=== PATIENT | male | born 1955 | race Caucasian/White ===

== ENCOUNTER 2021-07-30 15:04 | Inpatient (IN) | payer OTHER ==
[~2021-07-30] VITALS: Ht 167.6 cm; Wt 90.7 kg
[~2021-07-30 15:04] MED LIST: ADMELOG100 UNIT/1 SQ; BASAGLAR K100 UNIT/1 SC; CATAPRES0.3 MG PO; HUMALOG100 UNIT/1 SQ; HYDRALAZINE HC100 MG PO; HYDRALAZINE HCL25 MG PO; HYDROCHLOROTHIA25 MG PO; LEVOTHYROXINE75 MCG PO; LIPITOR TAB 2020 MG PO; LOPID TAB 600600 MG PO; LOPRESSOR 25 MG25 MG PO; LOPRESSOR50 MG PO; MAPAP500 MG PO; NORCO 7.5-3251 EACH PO; NORVASC10 MG PO; PHOSLO 667 MG667 MG PO; POTASSIUM CHLOR8 ME1 PO; PRINIVIL20 MG PO; PROTONIX40 MG PO; RENVELA2.4 GM PO; SYNTHROID100 MCG PO; TOUJEO MAX300 UNIT/1 INJ; TUMS300 MG PO; VITAMIN D250000 UNIT PO; VITAMIN D5000 UNIT PO; ZANAFLEX4 MG PO; ZOFRAN4 MG PO
[2021-07-30 15:38] LABS: HEMOGLOBIN 8.6 gm/dl (14.0-17.5); RED BLOOD COUNT 2.57 M/UL (4.20-5.50); WHITE BLOOD COUNT 12.3 K/UL (4.5-11.0)
[2021-07-30] MEDS ORDERED: HYDROCODON-ACE1 EAC2 PO (22:38)
[2021-07-30] MEDS ORDERED: BANOPHEN25 MG PO (22:39)
[2021-07-31 03:07] LABS: HEMOGLOBIN 7.9 gm/dl (14.0-17.5); RED BLOOD COUNT 2.38 M/UL (4.20-5.50); WHITE BLOOD COUNT 10.1 K/UL (4.5-11.0)
[2021-07-31] MEDS ORDERED: LANTUS100 UNIT/1 SQ (12:55)
[2021-08-01 07:05] LABS: HEMOGLOBIN 7.4 gm/dl (14.0-17.5); RED BLOOD COUNT 2.27 M/UL (4.20-5.50); WHITE BLOOD COUNT 10.2 K/UL (4.5-11.0)
[2021-08-02 07:54] LABS: HEMOGLOBIN 7.1 gm/dl (14.0-17.5); RED BLOOD COUNT 2.26 M/UL (4.20-5.50); WHITE BLOOD COUNT 10.5 K/UL (4.5-11.0)
[2021-08-02 19:25] LABS: HEMOGLOBIN 8.1 gm/dl (14.0-17.5); RED BLOOD COUNT 2.44 M/UL (4.20-5.50); WHITE BLOOD COUNT 11.2 K/UL (4.5-11.0)
--- NOTE | 2021-08-02 20:51 | NUR ---
2034- PT SENT WITH EMS TO [facility]. HEPARIN DRIP START DELAYED D/T EXTENDED TIME SPENT IN CT. PT SENT WITH ALL BELONGINGS. PT SENT WITH FULL COPY OF CHART INCLUDING EMAR ADMINISTRATION REPORT AND HEPARIN FLOW SHEETS. REPORT GIVEN TO EMS PRIOR TO TRANSFER AND THEY ENDORSED NO QUESTIONS.
== END 2021-08-02 20:44 | disposition short-term general hospital (02) | DRG 157 ==
LOC: ER1 15:04 → M/S 21:00 → CDU 21:00 → M/S 22:29
PROVIDERS: Emergency Medicine; Internal Medicine; Internal Medicine Nephrology; ADMIT Internal Medicine Infectious Disease
PROC: 5A1D70Z Performance of Urinary Filtration, Intermittent, Less than 6 Hours Per Day (ICD-10-PCS; principal; 2021-08-02)
DX: K04.6 Periapical abscess with sinus (principal); N18.6 End stage renal disease; L03.213 Periorbital cellulitis; G08 Intracranial and intraspinal phlebitis and thrombophlebitis; I12.0 Hypertensive chronic kidney disease with stage 5 chronic kidney disease or end stage renal disease; Z20.822 Contact with and (suspected) exposure to COVID-19; K02.9 Dental caries, unspecified; H49.882 Other paralytic strabismus, left eye; E78.5 Hyperlipidemia, unspecified; H49.3 Total (external) ophthalmoplegia; H54.62 Unqualified visual loss, left eye, normal vision right eye; E11.22 Type 2 diabetes mellitus with diabetic chronic kidney disease; D63.1 Anemia in chronic kidney disease; Z79.4 Long term (current) use of insulin; Z99.2 Dependence on renal dialysis; Z79.82 Long term (current) use of aspirin; Z90.49 Acquired absence of other specified parts of digestive tract
CPT/HCPCS: 36415; 70470; 70487; 80048; 80053; 82550; 82553; 82962; 83605; 83874; 84484; 85025; 85610; 85730; 86140; 87081; 87880; 90937; 93005; 96374; 96375; 96376; 99285; G0378; J1170; J1335; J1644; J2185; J2405; J2550; J3370; J7070; Q9967; U0002

== ENCOUNTER 2022-03-21 15:06 | Emergency (ER) | payer OTHER ==
[~2022-03-21 15:06] MED LIST changes: +ASPIRIN EC81 MG PO; +BANOPHEN25 MG PO; +CRESEMBA PO; +GEMFIBROZIL600 MG PO; -HYDRALAZINE HCL25 MG PO; +HYDROCODON-ACE1 EAC6 PO; +IMDUR PO; +LANTUS100 UNIT/1 SQ; +LEVOTHYROXINE100 MCG PO; +LISINOPRIL20 MG PO; +LISINOPRIL40 MG PO; -RENVELA2.4 GM PO; +RENVELA800 MG PO; -TOUJEO MAX300 UNIT/1 INJ; +TOUJEO MAX300 UNIT/1 SQ; +VITAMIN D21250 MCG PO; +ZOFRAN 4 MG TAB4 MG PO; -ZOFRAN4 MG PO
[2022-03-21 15:33] LABS: RED BLOOD COUNT 3.16 M/UL (4.20-5.50); WHITE BLOOD COUNT 5.5 K/UL (4.5-11.0)
== END 2022-03-21 19:25 | disposition home or self-care (01) ==
LOC: ER1 15:06
PROVIDERS: Emergency Medicine
DX: T82.838A Hemorrhage due to vascular prosthetic devices, implants and grafts, initial encounter (principal); I12.0 Hypertensive chronic kidney disease with stage 5 chronic kidney disease or end stage renal disease; N18.6 End stage renal disease; D64.9 Anemia, unspecified; D69.6 Thrombocytopenia, unspecified; E78.5 Hyperlipidemia, unspecified; Y83.8 Other surgical procedures as the cause of abnormal reaction of the patient, or of later complication, without mention of misadventure at the time of the procedure
CPT/HCPCS: 80053; 82550; 82553; 84484; 85025; 85610; 85730; 99283

== ENCOUNTER 2022-05-09 16:59 | Emergency (ER) | payer MEDICARE, OTHER ==
[2022-05-09 18:08] LABS: HEMOGLOBIN 8.5 gm/dl (14.0-17.5); RED BLOOD COUNT 2.78 M/UL (4.20-5.50); WHITE BLOOD COUNT 5.6 K/UL (4.5-11.0)
[2022-05-09] MEDS ORDERED: CEPHALEXIN500 M1 PO (20:24)
== END 2022-05-09 20:43 | disposition home or self-care (01) ==
LOC: ER1 16:59
DX: I96 Gangrene, not elsewhere classified (principal); E11.22 Type 2 diabetes mellitus with diabetic chronic kidney disease; N18.9 Chronic kidney disease, unspecified
CPT/HCPCS: 73130; 80053; 85025; 85652; 86140; 99284

== ENCOUNTER 2022-05-18 01:01 | Inpatient (IN) | payer OTHER ==
[~2022-05-18] VITALS: Ht 167.6 cm; Wt 83.7 kg
[~2022-05-18 01:01] MED LIST changes: +CEPHALEXIN500 M1 PO; -LISINOPRIL40 MG PO; -LOPRESSOR 25 MG25 MG PO; +LOPRESSOR 50 MG50 MG PO
[2022-05-18 06:07] LABS: RED BLOOD COUNT 2.25 M/UL (4.20-5.50)
--- NOTE | 2022-05-18 07:05 | NUR ---
CRITICAL LAB OF [facility] 6.9 RECIEVED, [facility] IT CAME BACK 7.0, CONTACTED DR. NAILS WHO REPLIED "K" NOTIFIED DAY SHIFT NURSE OF [facility].
[2022-05-18 14:36] LABS: HEMOGLOBIN 7.7 gm/dl (14.0-17.5)
[2022-05-18] MEDS ORDERED: SENNA8.6 MG PO (15:04)
[2022-05-18] MEDS ORDERED: NOVOLOG100 UNIT/2 SQ (15:06)
[2022-05-18] MEDS ORDERED: BASAGLAR K100 UNIT/1 SQ (15:11)
[2022-05-18] MEDS ORDERED: HYDROCHLOROTHIA25 MG PO (15:13)
[2022-05-18] MEDS ORDERED: LOPERAMIDE2 MG PO (15:22)
[2022-05-18] MEDS ORDERED: FENOFIBRATE54 MG PO (15:31)
--- NOTE | 2022-05-18 15:32 | NUR ---
CONTACTED DR ABRAMS WITH UPDATED [facility] OF 7.7 AFTER PATIENT RECEIVED 1 UNIT OF PACKED RBC'S.
[2022-05-18] MEDS ORDERED: TRIAMCINOLONE A80 GM TOP (15:53)
[2022-05-19 03:05] LABS: HEMOGLOBIN 8.2 gm/dl (14.0-17.5); WHITE BLOOD COUNT 7.3 K/UL (4.5-11.0)
[2022-05-19 03:14] LABS: RED BLOOD COUNT 2.66 M/UL (4.20-5.50)
[2022-05-20 02:49] LABS: RED BLOOD COUNT 2.54 M/UL (4.20-5.50); WHITE BLOOD COUNT 6.5 K/UL (4.5-11.0)
[2022-05-20 23:50] LABS: BORDETELLA PARAPERTUSSIS Not Detected (Not Detectd); BORDETELLA PERTUSSIS Not Detected (Not Detectd); CHLAMYDIA PNEUMONIAE Not Detected (Not Detectd); CORONAVIRUS HKU1 Not Detected (Not Detectd); CORONAVIRUS NL63 Not Detected (Not Detectd); CORONAVIRUS OC43 Not Detected (Not Detectd); CORONOAVIRUS 229E Not Detected (Not Detectd); HUMAN METAPNEUMOVIRUS Not Detected (Not Detectd); HUMAN RHINOVIRUS/ENTEROVIRUS Not Detected (Not Detectd); INFLUENZA A Not Detected (Not Detectd); INFLUENZA B Not Detected (Not Detectd); MYCOPLASMA PNEUMONIAE Not Detected (Not Detectd); PARAINFLUENZA VIRUS 1 Not Detected (Not Detectd); PARAINFLUENZA VIRUS 2 Not Detected (Not Detectd); PARAINFLUENZA VIRUS 3 Not Detected (Not Detectd); PARAINFLUENZA VIRUS 4 Not Detected (Not Detectd); RESPIRATORY SYNCYTIAL VIRUS Not Detected (Not Detectd)
[2022-05-21 00:49] LABS: SARS-CoV-2 NOT DETECTED (Not Detectd)
[2022-05-21 04:17] LABS: HEMOGLOBIN 7.6 gm/dl (14.0-17.5); RED BLOOD COUNT 2.44 M/UL (4.20-5.50); WHITE BLOOD COUNT 5.9 K/UL (4.5-11.0)
[2022-05-21] MEDS ORDERED: ATORVASTATIN CA20 MG PO (18:33)
[2022-05-21] MEDS ORDERED: ASPIRIN EC81 MG PO (18:33)
[2022-05-21] MEDS ORDERED: DOXYCYCLINE HY100 MG PO (18:33)
[2022-05-21] MEDS ORDERED: LEVOFLOXACIN500 MG PO (18:33)
[2022-05-22 05:10] LABS: RED BLOOD COUNT 2.56 M/UL (4.20-5.50)
--- NOTE | 2022-05-22 10:19 | NUR ---
PATIENT OUT OF ROOM TO DIALYSIS AT 0810 PER BILL HIKER.
== END 2022-05-22 15:45 | disposition home health service (06) | DRG 255 ==
LOC: M/S 02:08
PROVIDERS: Internal Medicine; Internal Medicine Nephrology; Orthopaedic Surgery; ADMIT Internal Medicine
PROC: 8E0ZXY6 Isolation (ICD-10-PCS; 2022-05-18)
PROC: 0Y6U0Z1 Detachment at Left 3rd Toe, High, Open Approach (ICD-10-PCS; principal; 2022-05-19 18:17)
DX: E11.52 Type 2 diabetes mellitus with diabetic peripheral angiopathy with gangrene (principal); N18.6 End stage renal disease; U07.1 COVID-19; I12.0 Hypertensive chronic kidney disease with stage 5 chronic kidney disease or end stage renal disease; I25.10 Atherosclerotic heart disease of native coronary artery without angina pectoris; E11.22 Type 2 diabetes mellitus with diabetic chronic kidney disease; I08.0 Rheumatic disorders of both mitral and aortic valves; E03.9 Hypothyroidism, unspecified; E55.9 Vitamin D deficiency, unspecified; K21.9 Gastro-esophageal reflux disease without esophagitis; H54.62 Unqualified visual loss, left eye, normal vision right eye; E78.5 Hyperlipidemia, unspecified; D63.1 Anemia in chronic kidney disease; Z79.4 Long term (current) use of insulin; Z79.01 Long term (current) use of anticoagulants; Z79.82 Long term (current) use of aspirin; Z99.2 Dependence on renal dialysis; Z90.49 Acquired absence of other specified parts of digestive tract; Z83.3 Family history of diabetes mellitus; Z82.49 Family history of ischemic heart disease and other diseases of the circulatory system; Z85.9 Personal history of malignant neoplasm, unspecified; Z87.01 Personal history of pneumonia (recurrent)
CPT/HCPCS: 36415; 36430; 71045; 73130; 80048; 80053; 80202; 82550; 82553; 82962; 83540; 83550; 83735; 83880; 84484; 85014; 85018; 85025; 85027; 85652; 86850; 86900; 86901; 86920; 87040; 87633; 93005; J1170; J1335; J1644; J2001; J2250; J2405; J2704; J3010; J3370; J7070; P9016

== ENCOUNTER 2022-05-27 16:13 | Emergency (ER) | payer MEDICARE, OTHER ==
[~2022-05-27 16:13] MED LIST changes: +ATORVASTATIN CA20 MG PO; +BASAGLAR K100 UNIT/1 SQ; +DOXYCYCLINE HY100 MG PO; +FENOFIBRATE54 MG PO; +LEVOFLOXACIN500 MG PO; +LOPERAMIDE2 MG PO; +NOVOLOG100 UNIT/2 SQ; +SENNA8.6 MG PO; +TRIAMCINOLONE A80 GM TOP
== END 2022-05-27 19:27 | disposition home or self-care (01) ==
LOC: ER1 16:13
DX: I95.9 Hypotension, unspecified (principal); Z99.2 Dependence on renal dialysis; I12.0 Hypertensive chronic kidney disease with stage 5 chronic kidney disease or end stage renal disease; N18.6 End stage renal disease; E11.22 Type 2 diabetes mellitus with diabetic chronic kidney disease
CPT/HCPCS: 93005; 99284

== ENCOUNTER 2022-05-29 16:01 | Emergency (ER) | payer MEDICARE, OTHER ==
[2022-05-29 18:47] LABS: WHITE BLOOD COUNT 7.8 K/UL (4.5-11.0)
[2022-05-29 19:33] LABS: HEMOGLOBIN 6.2 gm/dl (14.0-17.5)
[2022-05-29 23:33] LABS: HEMOGLOBIN 6.9 gm/dl (14.0-17.5)
== END 2022-05-30 00:50 | disposition left against medical advice (07) ==
LOC: ER1 16:01
PROVIDERS: Family Medicine; Student in an Organized Health Care Education/Training Program
DX: D64.9 Anemia, unspecified (principal); K92.2 Gastrointestinal hemorrhage, unspecified; R01.1 Cardiac murmur, unspecified; I11.9 Hypertensive heart disease without heart failure; E11.9 Type 2 diabetes mellitus without complications; Z99.2 Dependence on renal dialysis
CPT/HCPCS: 80053; 82270; 82550; 82553; 84484; 85014; 85018; 85025; 93005; 99283